=== PATIENT | male | born 1965 | race Caucasian/White ===

== ENCOUNTER → 2020-06-20 10:01 | Outpatient (CLI) | payer OTHER, SELFPAY ==
[2020-06-20 11:11] LABS: COVID19 -Nasal RAPID Negative (Negative)
== END ==
PROVIDERS: Visit Provider Physician Assistant
DX: Z01.812 Encounter for preprocedural laboratory examination (principal); Z20.822 Contact with and (suspected) exposure to COVID-19
CPT/HCPCS: 87635

== ENCOUNTER 2020-06-22 11:51 | Day surgery (SDC) | payer OTHER, SELFPAY ==
--- NOTE | 2020-06-22 | PATH_ITS ---
[facility] Accession Number: [id number] . 01 Material submitted: . colon - TRANSVERSE COLON . 01 Clinical history: . SCREENING COLONOSCOPY . 02 Diagnosis: Transverse Colon, Biopsy: Tubular adenoma. MRV 06/27/2020 1151 Local . 02 Electronically signed: . Daria Arshad MD, Pathologist NPI- [id number] . 01 Gross description: . TRANSVERSE COLON: Received in formalin is 1 fragment(s) of matos, soft tissue measuring 0.3 x 0.3 x 0.3 cm submitted entirely in 1 cassette(s) /FRANCISCO 06/25/2020 1910 Local . 02 Pathologist provided ICD-10: D12.3 . 02 CPT . 811900 Performed at: 01 [facility] [address] [place] [address], [place], [place] [id number] MD Dallin Vieyra MD Phone: [phone] Performed at: 02 [facility] [address] [place], [place] [id number] MD Daria Arshad MD Phone: [phone]
--- NOTE | 2020-06-22 11:58 | P.HP_ITS ---
History of Present Illness History of Present Illness Date Patient Seen: 06/22/20 Chief complaint: SCREENING COLONOSCOPY Narrative: 54 Years Old Male seen today for consideration of a screening colonoscopy. There have been no lower GI symptoms suggesting disease such as change in bowel habits, bleeding, abdominal pain or anemia. There's been no family history of colon cancer or colon polyps. Overall health issues have been stable, including no major cardiac events for at least 6 weeks. He does have a history of an acute inferior STEMI status post complications from urosepsis after orthopedic surgery, 2016. 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 Overdue for follow with Dr. Webster, to determine if he can come off Plavix. Past Medical History: ACS 12/01 HEMATURIA, BRENDON Contusion of left lower leg RAYNAUD'S SYNDROME DERMATITIS Nummular eczematous dermatitis HYPERTENSION HYPERLIPIDEMIA SEPTICEMIA with NSTEMI CAD SMOKELESS TOBACCO ABUSE Past Surgical History: Left thumb tendon surgery Calcaneus surgery, left, 2016, complicated by urosepsis and PR Placement of cardiac stent to right coronary lesion Family History: Father: - bladder cancer Mother: Siblings: Hypertension Social History: Marital Status: Single Children: Occupation: [employer] Household Members: Self Education: 12 2 beers and 1 glass of wine per day. Patient History Family & Social History Family History Family/Other Hypertension Family/Other Hypertension Tobacco & Substance use: Smoking Status Never smoker Meds Home Medications and Allergies Home Medications Medication Instructions Recorded Confirmed Type atorvastatin 40 mg tablet 40 mg PO DAILY 05/22/20 06/22/20 History carvedilol 3.125 mg tablet 3.125 mg PO BID 05/22/20 06/22/20 History clopidogrel 75 mg tablet 75 mg PO DAILY 05/22/20 06/22/20 History lisinopril 20 mg tablet 20 mg PO DAILY 05/22/20 06/22/20 History Allergies Allergy/AdvReac Type Severity Reaction Status Date / Time No Known Drug Allergies Allergy Verified 06/22/20 12:13 Review of Systems Review of Systems ROS: Yes All systems reviewed with the patient and are negative except as otherwise documented Exam Narrative Exam Narrative: General: well developed, well nourished, in no acute distress, Head: normocephalic and atraumatic, Lungs: normal respiratory effort, clear bilaterally to auscultation, no wheezes rales or rhonchi. Heart: normal rate and regular rhythm, no murmurs, rubs, gallops, or clicks, Abdomen: abdomen soft and non-tender without masses, organomegaly, or abdominal wall hernias, bowel sounds positive. Skin: intact without suspicious lesions or rashes, Psych: alert and cooperative; normal mood and affect; normal attention span and concentration; cognition, remote and recent memory appear to be intact, Assessment & Plan Assessment & Plan narrative: 1. Screening for colon cancer Plan for colonoscopy. The nature and character of the procedure as well as anticipated results were discussed. The possibility of not completing the procedure was also discussed. Possible complications including aspiration pneumonia, bleeding, perforation and reaction to medications either for sedation or preparation and missed lesions were discussed. Questions were answered and proceeding to the colonoscopy was elected. Informed consent signed. I sincerely appreciate the referral allowing me to participate in this patient's care. Please contact me with any questions or concerns. 2. Long-term (current) use of other medications Patient is on Plavix and aspirin for drug-eluting cardiac stent to the right coronary. History of PR, 2017. LETICIA Patel, cardiology advised stopping his Plavix 7 days prior to his procedure and restarting 3 days after.
--- NOTE | 2020-06-22 12:02 | P.OP.ENDO_ITS ---
Operative Date/Time/Diagnoses Date of procedure: 06/22/20 Procedure Notes Procedure in detail: ENDOSCOPIST: Nicolasa Barajas MD Sedation RN: Shirley Luz RN Sedation start time: 4:06 p.m. Sedation end time: 1:50 p.m. PROCEDURE: Colonoscopy with cold biopsy INDICATIONS: 1. Screening for colon cancer MEDICATION: Levsin 0.125 mg sublingual, incremental doses of Versed and fentanyl until appropriate level sedation achieved. ASA CLASS: 2 CECAL WITHDRAWAL TIME: 25 minutes COMPLICATIONS: None. EXTENT OF PROCEDURE: Cecum. QUALITY OF PREP: Good with portions of liquid stool. PROCEDURE: Prior to insertion of the colonoscope, a digital rectal examination was a ccomplished with circumferential palpation of the distal rectal mucosa without significant findings being noted. The high-definition colonoscope was passed into the rectum in the usual fashion and advanced over to the cecum with some difficulty due to tortuosity. The ileocecal valve, appendiceal stoma, and medial wall all could be inspected and no abnormalities were seen. ASCENDING COLON: As the colonoscope was withdrawn, care was taken to expose and inspect the haustral folds and no abnormalities were seen. HEPATIC FLEXURE: Normal, no polyps, diverticula or other abnormalities. TRANSVERSE COLON: 2 mm polyp removed with cold biopsy forceps, otherwise normal, no polyps, diverticula or other abnormalities. DESCENDING COLON: Normal, no polyps, diverticula or other abnormalities. SIGMOID COLON: Minor diverticulosis, otherwise, normal, no polyps or other abnormalities. RECTUM: Normal. J maneuver was produced. There was no significant perianal disease. The J maneuver was broken. The remainder of the rectum was inspected and there was moderate external hemorrhoid disease. The scope was withdrawn. IMPRESSION: 1. Transverse polyp x1, 2 mm, removed with cold biopsy forceps 2. Sigmoid diverticulosis, minor 3. External hemorrhoids, moderate PLAN: 1. Follow-up in clinic status post pathology results The possibility of a missed lesion including a malignancy has been discussed with the patient previously. Potential alarm symptoms have been discussed and should be reported immediately.
[2020-06-22 12:14] VITALS: BP 163/95; PULSE 64; RESP 16; TEMP 37; O2SAT 97; BMI 28.1
[2020-06-22] MEDS: LACTATED RINGERS 1,000 ML 200 ML IV (12:21)
[2020-06-22] MEDS: HYOSCYAMINE 0.125 MG TABLET PO (12:32)
[2020-06-22] MEDS: fentaNYL 250 MCG/5 ML INJ IV (13:18)
[2020-06-22] MEDS: MIDAZOLAM 5 MG/5 ML VIAL IV (13:30)
[2020-06-22 13:55] VITALS: BP 129/76; PULSE 71; RESP 12; TEMP 36.8; O2SAT 98
[2020-06-22 14:00] VITALS: BP 131/84; PULSE 66; RESP 10; O2SAT 98
[2020-06-22 14:05] VITALS: BP 128/84; PULSE 61; RESP 17; O2SAT 97
[2020-06-22 14:10] VITALS: BP 134/82; PULSE 59; RESP 15; O2SAT 98
== END 2020-06-22 14:24 | disposition home or self-care (01) ==
PROVIDERS: PCP Student in an Organized Health Care Education/Training Program; Referring Provider Student in an Organized Health Care Education/Training Program; Visit Provider Student in an Organized Health Care Education/Training Program
PROC: 0DJD8ZZ Inspection of Lower Intestinal Tract, Via Natural or Artificial Opening Endoscopic (ICD-10-PCS; CPT 45378; principal; 2020-06-22 13:00)
DX: Z12.11 Encounter for screening for malignant neoplasm of colon (principal); I10 Essential (primary) hypertension; E78.5 Hyperlipidemia, unspecified; I25.10 Atherosclerotic heart disease of native coronary artery without angina pectoris; I25.2 Old myocardial infarction; K57.30 Diverticulosis of large intestine without perforation or abscess without bleeding; K64.4 Residual hemorrhoidal skin tags; D12.3 Benign neoplasm of transverse colon
CPT/HCPCS: 45380; J2250; J3010

== ENCOUNTER → 2020-08-16 12:12 | Outpatient (CLI) | payer OTHER, SELFPAY ==
[2020-08-16] MEDS: COVID-19 VACC #1, MRNA(MOD) 100 MCG/0.5 ML VIAL IM (12:17)
== END ==
PROVIDERS: PCP Student in an Organized Health Care Education/Training Program; Visit Provider Internal Medicine
DX: Z23 Encounter for immunization (principal)
CPT/HCPCS: 0011A; 91301

== ENCOUNTER → 2020-09-13 12:06 | Outpatient (CLI) | payer OTHER, SELFPAY ==
[2020-09-13] MEDS: COVID-19 VACC #2, MRNA(MOD) 100 MCG/0.5 ML VIAL IM (12:13)
== END ==
PROVIDERS: PCP Student in an Organized Health Care Education/Training Program; Visit Provider Internal Medicine
DX: Z23 Encounter for immunization (principal)
CPT/HCPCS: 0012A; 91301